=== PATIENT | male | born 1995 | race Caucasian/White ===

== ENCOUNTER 2020-10-04 18:11 | Outpatient (REF) | payer OTHER, SELFPAY | END 2020-10-04 18:12 | disposition home or self-care (01) | LOC: HO.LNP 18:11 | PROVIDERS: Visit Provider Family Medicine | DX: R30.0 Dysuria (principal) | CPT/HCPCS: 87086 ==

== ENCOUNTER 2020-10-05 14:25 | Outpatient (REF) | payer OTHER, SELFPAY ==
[2020-10-05 15:49] LABS: Alanine Aminotransferase 40 U/L (0-40); Albumin Level 4.7 g/dL (3.5-5.0); Alkaline Phosphatase 65 U/L (39-117); Anion Gap 12 (12-20); Aspartate Amino Transferase 21 U/L (5-37); Bilirubin Total 0.4 mg/dL (0.0-1.0); Blood Urea Nitrogen 12 mg/dL (9-16); Calcium 9.6 mg/dL (8.4-10.2); Carbon Dioxide 29 mmol/L (22-29); Chloride 104 mmol/L (96-108); Cholesterol 172 mg/dL; Estimated Glomerular Filt Rate > 60; Glucose Fasting 94 mg/dL (60-99); HDL Cholesterol 41 mg/dL; LDL Cholesterol Calculated 102 mg/dl; Potassium 4.2 mmol/l (3.3-5.1); Sodium 141 mmol/L (135-145); Total Protein 6.8 g/dL (6.5-8.0); Triglycerides 145 mg/dL
[2020-10-05 16:11] LABS: TSH reflex Free T4 0.61 mIU/mL (0.32-4.0)
== END 2020-10-05 14:26 | disposition home or self-care (01) ==
LOC: HO.LAB 14:25
PROVIDERS: PCP Family Medicine; Visit Provider Family Medicine
DX: Z00.00 Encounter for general adult medical examination without abnormal findings (principal); R30.0 Dysuria
CPT/HCPCS: 80053; 80061; 84443

== ENCOUNTER 2020-10-13 15:28 | Outpatient (REF) | payer OTHER, SELFPAY ==
[2020-10-13 16:14] LABS: Glucose Fasting 91 mg/dL (60-99)
[2020-10-15 01:28] LABS: LDL Cholesterol Direct 96 mg/dL (<100)
== END 2020-10-13 15:29 | disposition home or self-care (01) ==
LOC: HO.LAB 15:28
PROVIDERS: Visit Provider Family Medicine
DX: Z00.00 Encounter for general adult medical examination without abnormal findings (principal)
CPT/HCPCS: 36415; 82947; 83721